=== PATIENT | female | born 1950 | race Caucasian/White ===

== ENCOUNTER 2016-11-07 18:36 | Observation (INO) | payer OTHER ==
[~2016-11-07] VITALS: Ht 165.1 cm; Wt 56.0 kg
[2016-11-07] MEDS ORDERED: IOHEXOL 350 MG/ML 10 ML VIAL (for RAD DIAG) IVCONTRAST ONE (18:37)
[2016-11-07 18:39] VITALS: BP 159/103; PULSE 147; RESP 18; TEMP 99.8; O2SAT 94
[2016-11-07 19:13] VITALS: BP 172/101; PULSE 134; O2SAT 95
[2016-11-07 19:14] VITALS: RESP 18; O2SAT 96
[2016-11-07] MEDS ORDERED: LORazepam 2 MG/ML VIAL IV PUSH ONE (19:30)
[2016-11-07] MEDS ORDERED: SODIUM CHLORID 0.9% 500 ML INJ 500 ML IV ONE (19:30)
[2016-11-07] MEDS ORDERED: LABETALOL HCL 100 MG/20 ML VIAL IV PUSH ONE (19:30)
[2016-11-07] MEDS ORDERED: ONDANSETRON HCL 4 MG/2 ML VIAL IV ONE (19:30)
--- NOTE | 2016-11-07 19:33 | PD ---
HPI Chief Complaint: GI Complaint Time Seen by Provider: 19:07 Travel History International Travel<30 days: No Contact w/Intl Traveler<30days: No Traveled to known affect area: No History of Present Illness HPI The patient is a 66 year old female who presents to the [facility] emergency department with a history of generalized weakness that she reports began a month ago. She reports that a week ago she began to have right upper quadrant abdominal pain and abdominal distention. She reports that she intermittently has nausea and vomiting, last episode of vomiting was a few days ago. She denies having any diarrhea. She reports that she last checked her blood sugar 2 days ago and it was 126. She reports that she has diabetes mellitus that is diet and exercise controlled. She cannot recall the name of her primary care physician. She was last seen by primary care physician a year ago. She reports that she has a history of tachycardia and was placed on atenolol, however she ran out of this medication week ago. The patient reports that she was drinking a half a gallon of vodka per week, however a month ago she discontinued this. She reports that she was shaky over the last 2 days, therefore she did drink 1 shot of vodka yesterday. The patient reports that she has been sleeping up to 20 hours per day. She reports that because of that she is smoking less cigarettes. She reports that she is down to smoking one half pack of cigarettes per day. She reports that she has a chronic smoker's cough that has not been any worse or more productive. Otherwise on review of systems she denies any recent fevers, neck pain, chest pain, shortness of breath , urinary symptoms, or neurologic symptoms. [facility] Past Medical History Narrative Medical The patient's past medical history is significant for alcohol abuse, tobacco abuse, history of tachycardia, history of diet and exercise controlled diabetes mellitus. Cancer: Yes (breast) Diabetes: Yes Patient Takes Glucophage: No Immunizations Current: No Past Surgical History Narrative Surgical The patient's past surgical history is significant for , history of left breast cancer status post left mastectomy with reconstruction, status post chemotherapy without radiation therapy. The patient reports having breast cancer 40 years of age. Other Surgery: Yes (L side mastectomy, , ) Social History Alcohol Use: Yes (recently reportedly quit drinking alcohol heavily a month ago ) Tobacco Use: Yes (one half pack per day) Substance Use: No Allergies-Medications (Allergen,Severity, Reaction): Coded Allergies: No Known Allergies (Unverified , 11/07/16) Narrative Medication The patient is supposed to be on atenolol, however she ran out of the medication a week ago. Review of Systems Except as stated in HPI: all other systems reviewed are Neg General / Constitutional: No: Fever Eyes: No: Visual changes HENT: No: Headaches Cardiovascular: No: Chest Pain or Discomfort, Dyspnea on exertion Respiratory: Positive: Cough (chronic smoker's cough), No: Shortness of Breath Gastrointestinal: Positive: Nausea, Vomiting, Abdominal Pain, Loss of Appetite , No: Diarrhea, Indigestion Genitourinary: No: Dysuria Musculoskeletal: No: Pain Skin: No Rash Neurologic: Positive: Weakness (generalized weakness and fatigue), No: Focal Abnormalities, Change in Mentation, Slurred Speech, Sensory Disturbance Psychiatric: No: Depression Endocrine: No: Polydipsia Hematologic/Lymphatic: No: Easy Bruising Physical Exam Narrative General: The patient is a well-developed well-nourished female in no acute distress. The patient's initial blood pressure is 170/110. Head and Neck exam: Head is normocephalic atraumatic. Eyes: EOMI, pupils are equal round and reactive to light. Nose: Midline septum with pink mucous membranes Mouth: Dentition unremarkable. Moist mucus membranes. Posterior oropharynx is not erythematous. No tonsillar hypertrophy. Uvula midline. Airway patent. Neck: No palpable lymphadenopathy. No nuchal rigidity. No thyromegaly. Cardiovascular: Sinus tachycardia in the 130s without murmurs, gallops, or rubs. No pulse deficit to the extremities and simultaneous auscultation and palpation of her radial artery. Lungs: The patient has decreased breath sounds in the right lower lung base, otherwise no wheezes, rhonchi, or crackles. No accessory muscle use. No paroxysmal abdominal breathing. No tripoding. Abdomen: Soft, with abdominal distention and a positive fluid wave. No significant tenderness on palpation except in the location of the right upper quadrant of the abdomen on deep palpation. No guarding, rebound, or rigidity. Normal bowel sounds are audible. No tenderness on palpation of McBurney's point. Negative Bal sign. Extremities: No clubbing, cyanosis, or edema. 2+ pulses in all 4 extremities. No calf tenderness on palpation. Back: No spinous process tenderness to palpation. No costovertebral angle tenderness to palpation. Neurologic Exam: Grossly nonfocal. No asterixis. The patient has slight tremulousness noted. Skin Exam: No rash noted. Intact skin that is warm and dry. Data Data Last Documented VS Vital Signs Date Time Temp Pulse Resp B/P (MAP) Pulse Ox O2 Delivery O2 Flow Rate FiO2 11/07/16 19:14 18 96 Room Air 11/07/16 19:13 134 11/07/16 18:39 99.8 Orders Orders Electrocardiogram (11/07/16 19:09) Complete Blood Count With Diff (11/07/16 19:09) Comprehensive Metabolic Panel (11/07/16 19:09) Creatine Kinase (Cpk) (11/07/16 19:09) Ckmb (Isoenzyme) Profile (11/07/16 19:09) Troponin I (11/07/16 19:09) B-Type Natriuretic Peptide (11/07/16 19:09) Prothrombin Time / Inr (Pt) (11/07/16 19:09) Act Partial Throm Time (Ptt) (11/07/16 19:09) Lipase (11/07/16 19:09) Urinalysis - C+S If Indicated (11/07/16 19:09) Ammonia (11/07/16 19:09) Thyroid Stimulating Hormone (11/07/16 19:09) Chest, Single Ap (11/07/16 19:09) Iv Access Insert/Monitor (11/07/16 19:09) Ecg Monitoring (11/07/16 19:09) Oximetry (11/07/16 19:09) Drug Screen, Random Urine (11/07/16 19:09) Alcohol (Ethanol) (11/07/16 19:09) Salicylates (Aspirin) (11/07/16 19:09) Tylenol (Acetaminophen) (11/07/16 19:09) Ct Abd/Pel W Iv Contrast(Rout) (11/07/16 19:09) Ondansetron Inj (Zofran Inj) (11/07/16 19:30) Sodium Chlorid 0.9% 500 Ml Inj (Ns 500 M (11/07/16 19:30) Labetalol Inj (Trandate Inj) (11/07/16 19:30) Lorazepam Inj (Ativan Inj) (11/07/16 19:30) Iohexol 350 Inj (Omnipaque 350 Inj) (11/07/16 18:37) Admit Order (Ed Use Only) (11/07/16 21:56) Labs Laboratory Tests Test 11/07/16 19:15 11/07/16 19:30 White Blood Count 5.4 TH/MM3 Red Blood Count 3.96 MIL/MM3 Hemoglobin 13.3 GM/DL Hematocrit 40.7 % Mean Corpuscular Volume 102.8 FL Mean Corpuscular Hemoglobin 33.7 PG Mean Corpuscular Hemoglobin Concent 32.8 % Red Cell Distribution Width 13.7 % Platelet Count 144 TH/MM3 Mean Platelet Volume 9.2 FL Neutrophils (%) (Auto) 69.4 % Lymphocytes (%) (Auto) 21.2 % Monocytes (%) (Auto) 8.1 % Eosinophils (%) (Auto) 0.7 % Basophils (%) (Auto) 0.6 % Neutrophils # (Auto) 3.8 TH/MM3 Lymphocytes # (Auto) 1.1 TH/MM3 Monocytes # (Auto) 0.4 TH/MM3 Eosinophils # (Auto) 0.0 TH/MM3 Basophils # (Auto) 0.0 TH/MM3 CBC Comment DIFF FINAL Differential Comment Prothrombin Time 13.0 SEC Prothromb Time International Ratio 1.2 RATIO Activated Partial Thromboplast Time 26.8 SEC Blood Urea Nitrogen 9 MG/DL Creatinine 0.67 MG/DL Random Glucose 149 MG/DL Total Protein 7.5 GM/DL Albumin 2.7 GM/DL Calcium Level 8.5 MG/DL Alkaline Phosphatase 84 U/L Aspartate Amino Transf (AST/SGOT) 77 U/L Alanine Aminotransferase (ALT/SGPT) 36 U/L Total Bilirubin 1.5 MG/DL Sodium Level 138 MEQ/L Potassium Level 3.7 MEQ/L Chloride Level 107 MEQ/L Carbon Dioxide Level 22.8 MEQ/L Anion Gap 8 MEQ/L Estimat Glomerular Filtration Rate 88 ML/MIN Total Creatine Kinase 51 U/L Troponin I LESS THAN 0.02 NG/ML B-Type Natriuretic Peptide 30 PG/ML Lipase 107 U/L Thyroid Stimulating Hormone 3rd Gen 1.870 uIU/ML Acetaminophen Level LESS THAN 2.0 MCG/ML Ethyl Alcohol Level 4 MG/DL Ammonia 47 MCMOL/L Salicylates Level LESS THAN 1.7 MG/DL MDM Medical Decision Making Medical Screen Exam Complete: Yes Emergency Medical Condition: Yes Medical Record Reviewed: Yes Differential Diagnosis Ascites, versus bowel obstruction, versus liver failure, versus hepatic encephalopathy, versus alcohol withdrawal syndrome Narrative Course During the course of the patients emergency department visit, the patients history, examination, and differential diagnosis were reviewed with the patient. The patient had IV access obtained and blood work sent for analysis. The patient was placed on a cardiac catheterization technician with oximetry and blood pressure monitoring. An ECG was done on arrival. The patient's ECG reveals a sinus tachycardia rate of 132, no acute ST segment elevation or depression, QRS duration is 74 ms, QTC 374 ms. The patient was initially provided normal saline a 500 mL bolus, Zofran 4 mg IV , labetalol 10 mg IV related to her tachycardia, hypertension, medication noncompliance with beta amei regimen. The patient was given Ativan 0.5 mg IV due to my concern that there is a suspected component of alcohol withdrawal syndrome. The patients laboratory studies were reviewed and remarkable for white count of 5.4, hemoglobin 13.3, platelets 144 with 8.1 monocytes, PT 13, INR 1.2, PTT 26.8. CMP is remarkable for glucose of 149, AST 77, total bilirubin 1.5, CPK is 51, ammonia level is 47, troponin I is less than 0.02, BNP 30, albumin 2.7, lipase 107, TSH 1.87, salicylate less than 1.7, acetaminophen less than 2, alcohol level is 4 Radiology studies were reviewed and remarkable for a chest x-ray that shows no acute cardiopulmonary disease. CT scan of the abdomen and pelvis shows suspected changes of cirrhosis of the liver. There is a moderate amount of ascites and varices present. Mild hiatal hernia. There are varices seen within the hiatal hernia. Absence of the right kidney. The left kidney appears unremarkable. The patients results were discussed with the patient, including the plan of care. I explained that further testing and/ or monitoring is indicated based on the patients history, examination, and/ or laboratory findings. Therefore, I recommended admission for additional evaluation. The patient expressed understanding and was agreeable with this plan. The patient was admitted to the hospital in guarded condition and sent to a bed under the care of the [facility]ist service. Physician Communication Physician Communication The patient's case was discussed with Dr. Blanc who did agree to admit the patient for further evaluation and treatment at this time. Diagnosis Primary Impression: Abdominal pain Qualified Codes: R10.11 - Right upper quadrant pain Additional Impressions: Generalized weakness Vomiting Qualified Codes: R11.2 - Nausea with vomiting, unspecified Admitting Information Admitting Physician Requests: it Fatou Starkey MD Nov 07, 2016 19:33
[2016-11-07 19:38] LABS: AUTOMATED NEUTROPHIL # 3.8 TH/MM3 (1.8-7.7); BASOPHIL % 0.6 % (0.0-2.0); EOSINOPHIL % 0.7 % (0.0-4.0); HEMATOCRIT 40.7 % (35.0-46.0); HEMO FLAGS DIFF FINAL; LYMPH % 21.2 % (9.0-44.0); LYMPHOCYTE # 1.1 TH/MM3 (1.0-4.8); MEAN CELL VOLUME 102.8 FL (80.0-100.0); MEAN CORPUSCULAR HEMOGLOBIN 33.7 PG (27.0-34.0); MEAN CORPUSCULAR HGB CONC 32.8 % (32.0-36.0); MONO % 8.1 % (0.0-8.0); NEUT % 69.4 % (16.0-70.0); PLATELET COUNT 144 TH/MM3 (150-450); RED BLOOD COUNT 3.96 MIL/MM3 (4.00-5.30); RED CELL DISTRIBUTION WIDTH 13.7 % (11.6-17.2); WHITE BLOOD COUNT 5.4 TH/MM3 (4.0-11.0)
[2016-11-07 19:52] LABS: APTT (PATIENT) 26.8 SEC (24.3-30.1); INTERNATIONAL NORMALIZED RATIO 1.2 RATIO
[2016-11-07 20:11] LABS: ANION GAP 8 MEQ/L (5-15)
[2016-11-07 20:22] LABS: ACETAMINOPHEN LESS THAN 2.0 MCG/ML (10.0-30.0); ALCOHOL 4 MG/DL (0-5); ALKALINE PHOSPHATASE 84 U/L (45-117); ALT (GPT) 36 U/L (10-53); AST (GOT) 77 U/L (15-37); BICARBONATE 22.8 MEQ/L (21.0-32.0); BLOOD UREA NITROGEN 9 MG/DL (7-18); CHLORIDE 107 MEQ/L (98-107); CREATINE KINASE 51 U/L (26-192); GLOMERULAR FILTRATION RATE 88 ML/MIN (>89); POTASSIUM 3.7 MEQ/L (3.5-5.1); SODIUM (NA) 138 MEQ/L (136-145); TOTAL BILIRUBIN ADULT 1.5 MG/DL (0.2-1.0)
[2016-11-07 20:30] VITALS: BP 164/89; PULSE 113; RESP 16; O2SAT 97
--- NOTE | 2016-11-07 20:52 | RADRPT ---
EXAM DATE/TIME: 11/07/2016 19:25 [facility] COMPARISON: No previous studies available for comparison. INDICATIONS : Palpitations MEDICAL HISTORY : Diabetes mellitus type II. SURGICAL HISTORY : Mastectomy, left. ENCOUNTER: Initial ACUITY: 1 month PAIN SCORE: 0/10 LOCATION: chest FINDINGS: A single view of the chest demonstrates the lungs to be symmetrically aerated without evidence of mas s, infiltrate or effusion. The cardiomediastinal contours are unremarkable. Osseous structures are intact. There is a peripherally calcified left breast implant. CONCLUSION: No acute disease. Santiago Mcleod MD on November 07, 2016 at 20:50 Board Certified Radiologist. This report was verified electronically.
[2016-11-07] MEDS ORDERED: SODIUM CHLORIDE 0.9% FLUSH 10 ML FLUSH IV FLUSH PRN (22:15)
[2016-11-07] MEDS ORDERED: NALOXONE HCL 0.4 MG/ML AMP IV PRN (22:15)
[2016-11-07] MEDS ORDERED: LACTULOSE SYRUP 20 GM/30 ML CUP PO ONE (22:15)
[2016-11-07] MEDS ORDERED: SODIUM CHLOR 0.9% 1000 ML INJ 1,000 ML IV ONE (22:15)
--- NOTE | 2016-11-07 22:56 | RADRPT ---
EXAM DATE/TIME: 11/07/2016 21:11 [facility] COMPARISON: No previous studies available for comparison. INDICATIONS : Abdominal pain with distention and general weakness. IV CONTRAST: 92 cc Omnipaque 350 (iohexol) IV ORAL CONTRAST: No oral contrast ingested. RADIATION DOSE: 4.90 CTDIvol (mGy) MEDICAL HISTORY : Diabetes mellitus type 2. Breast cancer. SURGICAL HISTORY : section. Mastectomy, left. ENCOUNTER: Initial ACUITY: 3 days PAIN SCALE: 7/10 LOCATION: Bilateral abdomen TECHNIQUE: Volumetric scanning of the abdomen and pelvis was performed. Using automated exposure control and adjustment of the mA and/or kV according to patient size, radiation dose was kept as low as reasonably achievable to obtain optimal diagnostic quality images. DICOM format image data is av ailable electronically for review and comparison. FINDINGS: The liver demonstrates abnormal morphology with hypertrophy of the caudate lobe. The l iver demonstrates diffuse decreased attenuation. Focal hepatic lesions are not seen. There is questi onable nodularity to the liver surface. The gallbladder is not distended. The spleen, adrenal glands and left kidney appear normal. The right kidney is not present. There is generalized atrophy of the pancreas. There is a moderate amount of ascites seen throughout the perit rosado cavity. There is recanalized periumbilical vein. The patient has a mild hiatal hernia. There do appear to be small varices seen around the hiatal hernia. Other than the mild hiatal hernia the bowel appears unremarkable. The pelvic structures appear grossly intact. There are scattered athero sclerotic calcifications seen throughout the arterial system. No aneurysm is seen. The lung bases a re grossly clear. The patient has a peripherally calcified left breast implant. CONCLUSION: 1. Suspected changes of cirrhosis in the liver. There is a moderate amount of ascites and varices pr esent. 2. Mild hiatal hernia. There are varices seen around the hiatal hernia. 3. Absence of the right kidney. The left kidney appears unremarkable. Santiago Mcleod MD on November 07, 2016 at 22:46 Board Certified Radiologist. This report was verified electronically.
[2016-11-07 23:00] VITALS: BP 158/99; PULSE 101; RESP 16; O2SAT 96
[2016-11-07 23:30] LABS: BACTERIA, URINE RARE /hpf; BLOOD, URINE NEG (NEG); COMMENT (UR) CULT NOT INDICATED; CULTURE IF INDICATED CULT NOT INDICATED; GLUCOSE,URINE NEG (NEG); KETONE, URINE TRACE mg/dL (NEG); MUCUS URINE FEW /lpf (OCC); NITRITE,URINE NEG (NEG); SQUAMOUS EPITHELIAL CELL URINE 10 /hpf (0-5); URINE COLOR YELLOW (YELLW/STRAW)
[2016-11-08] VITALS (10 sets, daily range): BP systolic 116–137; BP diastolic 62–83; PULSE 70–87; RESP 14–18; TEMP 97–98; O2SAT 94–97
--- NOTE | 2016-11-08 03:52 | HHI.HP ---
HPI Service [facility] Primary Care Physician Unknown Admission Diagnosis Abdominal pain, Hepatic encephalopathy, dehydration Diagnoses: Chief Complaint: abdominal pain Travel History International Travel<30 Days: No Contact w/Intl Traveler <30 Da: No Traveled to Known Affected Are: No History of Present Illness Written by MARIA ELENA Mcguire acting as scribe for [Jayashree] on 11/08/16 at 03: 42. 66 y/o female with a history of DM (not on medication), and Tachycardia (ran out of meds one week ago) presented to the ED with complaints of abdominal pain and distention. She states that for the last few days she has been having increased RUQ pain, distention, concentrated urine and fatigue. She does complain of diarrhea, but she was just given lactulose. She denies any fever, chills, n/v, chest pain or sob. She states she has been off atenolol for the last week, but she is unsure why she is taking it. She denies any history of cirrhosis or Hep C. She states she quit drinking 1 month ago, but she did have a drink yesterday. She did not consider herself a heavy drinker prior. Review of Systems Except as stated in HPI: all other systems reviewed are Neg Past Family Social History Past Medical History DM Breast cancer mastectomy and chemo at age 40 Tachycardia not on any medication Past Surgical History Right mastectomy C Section Reported Medications Patient states she does not take any medications. Allergies: Coded Allergies: No Known Allergies (Unverified , 11/07/16) Active Ordered Medications Current Medications Medications (Trade) Dose Ordered Sig/Yoel Route Start Time Stop Time Status Last Admin (NS Flush) 2 ml UNSCH PRN IV FLUSH 11/07/16 22:15 (NS Flush) 2 ml BID IV FLUSH 11/08/16 09:00 (Narcan Inj) 0.4 mg UNSCH PRN IV 11/07/16 22:15 Family History Brother: Enlarged heart Social History Tobacco use: 1 PPD Alcohol use: quit 1 month ago, heavy drinker prior Illicit drug use: Denies Physical Exam Vital Signs Vital Signs Date Time Temp Pulse Resp B/P (MAP) Pulse Ox O2 Delivery O2 Flow Rate FiO2 11/08/16 00:24 86 11/08/16 00:04 97.9 87 18 130/70 (90) 96 11/07/16 23:00 101 16 158/99 (118) 96 Room Air 11/07/16 20:30 113 16 164/89 (114) 97 Room Air 11/07/16 19:14 18 96 Room Air 11/07/16 19:13 134 172/101 (124) 95 Room Air 11/07/16 18:39 99.8 147 18 159/103 (121) 94 Physical Exam GENERAL: This is a well-nourished, well-developed patient, in no apparent distress. SKIN: No rashes, ecchymoses or lesions. Cool and dry. HEAD: Atraumatic. Normocephalic. No temporal or scalp tenderness. EYES: Pupils equal round and reactive. ENT: Nose without bleeding, purulent drainage or septal hematoma. Airway patent. NECK: Trachea midline. No JVD or lymphadenopathy. CARDIOVASCULAR: Regular rate and rhythm without murmurs, gallops, or rubs. RESPIRATORY: Clear to auscultation. Breath sounds equal bilaterally. No wheezes , rales, or rhonchi. GASTROINTESTINAL: Abdomen soft, RUQ tenderness, distended. No hepato- splenomegaly, or palpable masses. No guarding. MUSCULOSKELETAL: Extremities without clubbing, cyanosis, or edema. No joint tenderness, effusion, or edema noted. No calf tenderness. NEUROLOGICAL: Awake and alert. Motor and sensory grossly within normal limits. Normal speech. Laboratory Laboratory Tests Test 11/07/16 19:15 11/07/16 19:30 11/07/16 23:10 White Blood Count 5.4 Red Blood Count 3.96 Hemoglobin 13.3 Hematocrit 40.7 Mean Corpuscular Volume 102.8 Mean Corpuscular Hemoglobin 33.7 Mean Corpuscular Hemoglobin Concent 32.8 Red Cell Distribution Width 13.7 Platelet Count 144 Mean Platelet Volume 9.2 Neutrophils (%) (Auto) 69.4 Lymphocytes (%) (Auto) 21.2 Monocytes (%) (Auto) 8.1 Eosinophils (%) (Auto) 0.7 Basophils (%) (Auto) 0.6 Neutrophils # (Auto) 3.8 Lymphocytes # (Auto) 1.1 Monocytes # (Auto) 0.4 Eosinophils # (Auto) 0.0 Basophils # (Auto) 0.0 CBC Comment DIFF FINAL Differential Comment Prothrombin Time 13.0 Prothromb Time International Ratio 1.2 Activated Partial Thromboplast Time 26.8 Blood Urea Nitrogen 9 Creatinine 0.67 Random Glucose 149 Total Protein 7.5 Albumin 2.7 Calcium Level 8.5 Alkaline Phosphatase 84 Aspartate Amino Transf (AST/SGOT) 77 Alanine Aminotransferase (ALT/SGPT) 36 Total Bilirubin 1.5 Sodium Level 138 Potassium Level 3.7 Chloride Level 107 Carbon Dioxide Level 22.8 Anion Gap 8 Estimat Glomerular Filtration Rate 88 Total Creatine Kinase 51 Troponin I LESS THAN 0.02 B-Type Natriuretic Peptide 30 Lipase 107 Thyroid Stimulating Hormone 3rd Gen 1.870 Acetaminophen Level LESS THAN 2.0 Ethyl Alcohol Level 4 Ammonia 47 Salicylates Level LESS THAN 1.7 Urine Color YELLOW Urine Turbidity CLEAR Urine pH 7.0 Urine Specific [place] GREATER THAN 1.050 Urine Protein 30 Urine Glucose (UA) NEG Urine Ketones TRACE Urine Occult Blood NEG Urine Nitrite NEG Urine Bilirubin NEG Urine Urobilinogen 2.0 Urine Leukocyte Esterase NEG Urine RBC 2 Urine WBC 3 Urine Squamous Epithelial Cells 10 Urine Bacteria RARE Urine Mucus FEW Microscopic Urinalysis Comment CULT NOT INDICATED Urine Opiates Screen NEG Urine Barbiturates Screen NEG Urine Amphetamines Screen NEG Urine Benzodiazepines Screen NEG Urine Cocaine Screen NEG Urine Cannabinoids Screen NEG Result Diagram: 11/07/16191411/07/161914 Imaging Last Impressions Chest X-Ray 11/07/161908 Signed Impressions: Service Date/Time: Monday, November 07, 2016 19:25 - CONCLUSION: No acute disease. Santiago Mcleod MD Abdomen/Pelvis CT 11/07/161908 Signed Impressions: Service Date/Time: Monday, November 07, 2016 21:11 - CONCLUSION: 1. Suspected changes of cirrhosis in the liver. There is a moderate amount of ascites and varices present. 2. Mild hiatal hernia. There are varices seen around the hiatal hernia. 3. Absence of the right kidney. The left kidney appears unremarkable. MD Miranda Moon VTE Risk Assessment Caprini VTE Risk Assessment: Mod/High Risk (score >= 2) VTE Pharm Contraindication: Coagulopathy,INR elevated Caprini Risk Assessment Model Point Value = 1 Point Value = 2 Point Value = 3 Point Value = 5 Age 41-60 Minor surgery BMI > 25 kg/m2 Swollen legs Varicose veins or History of unexplained or recurrent spontaneous Oral contraceptives or hormone replacement Sepsis (< 1 month) Serious lung disease, including pneumonia (< 1 month) Abnormal pulmonary function Acute myocardial infarction Congestive heart failure (< 1 month) History of inflammatory bowel disease Medical patient at bed rest Age 61-74 Arthroscopic surgery Major open surgery (> 45 min) Laparoscopic surgery (> 45 min) Malignancy Confined to bed (> 72 hours) Immobilizing plaster cast Central venous access Age >= 75 History of VTE Family history of VTE Factor V Leiden Prothrombin [id number] Lupus anticoagulant Anticardiolipin antibodies Elevated serum homocysteine Heparin-induced thrombocytopenia Other congenital or acquired thrombophilia Stroke (< 1 month) Elective arthroplasty Hip, pelvis, or leg fracture Acute spinal cord injury (< 1 month) Prophylaxis Regimen Total Risk Factor Score Risk Level Prophylaxis Regimen 0-1 Low Early ambulation 2 Moderate Order ONE of the following: *Sequential Compression Device (SCD) *Heparin 5000 units SQ BID 3-4 Higher Order ONE of the following medications: *Heparin 5000 units SQ TID *Enoxaparin/Lovenox 40 mg SQ daily (WT < 150 kg, CrCl > 30 mL/min) *Enoxaparin/Lovenox 30 mg SQ daily (WT < 150 kg, CrCl > 10-29 mL/min) *Enoxaparin/Lovenox 30 mg SQ BID (WT < 150 kg, CrCl > 30 mL/min) AND/OR *Sequential Compression Device (SCD) 5 or more Highest Order ONE of the following medications: *Heparin 5000 units SQ TID (Preferred with Epidurals) *Enoxaparin/Lovenox 40 mg SQ daily (WT < 150 kg, CrCl > 30 mL/min) *Enoxaparin/Lovenox 30 mg SQ daily (WT < 150 kg, CrCl > 10-29 mL/min) *Enoxaparin/Lovenox 30 mg SQ BID (WT < 150 kg, CrCl > 30 mL/min) AND *Sequential Compression Device (SCD) Assessment and Plan Problem List: (1) Cirrhosis ICD Code: K74.60 - Unspecified cirrhosis of liver Status: Acute (2) Abdominal pain ICD Code: R10.9 - Unspecified abdominal pain Status: Acute Assessment and Plan 66 y/o female with a history of DM (not on medication), and Tachycardia (ran out of meds one week ago) presented to the ED with complaints of abdominal pain and distention. Cirrhosis, patient with abdominal pain and distention, denies any history Abdomen CT reviewed and shows Suspected changes of cirrhosis in the liver. There is a moderate amount of ascites and varices present. Mild hiatal hernia. There are varices seen around the hiatal hernia. Absence of the right kidney. The left kidney appears unremarkable. -Consult GI -US guided paracentesis ordered Elevated ammonia, ammonia 47, patient is alert and oriented -Lactulose given in ED -Will schedule lactulose if mentation worsens DVT prophylaxis: SCDs This note was transcribed by scribe [Jackelyn Shoemaker]. I, Dr. Juan Blanc personally performed the history, physical exam, and medical decision making; and confirmed the accuracy of the information in the transcribed note. Authenticated by Dr. Juan Blanc on 11/08/16 at 03:42. Discussed Condition With Patient and ED physician Problem Qualifiers (1) Abdominal pain: Qualified Codes: R10.11 - Right upper quadrant pain Jackelyn Shoemaker Nov 08, 2016 03:52 Juan Blanc MD Nov 08, 2016 07:55
[2016-11-08] MEDS ORDERED: DEXTROSE 50% IN WATER 50 ML VIAL(D50) IV PRN (04:15)
[2016-11-08] MEDS ORDERED: PILL SPLITTER OTHER PRN (04:15)
[2016-11-08] MEDS ORDERED: GLUCAGON 1 MG/ML VIAL OTHER PRN (04:15)
[2016-11-08 07:14] LABS: AUTOMATED NEUTROPHIL # 2.2 TH/MM3 (1.8-7.7); BASOPHIL # 0.1 TH/MM3 (0-0.2); BASOPHIL % 1.7 % (0.0-2.0); EOSINOPHIL # 0.1 TH/MM3 (0-0.4); EOSINOPHIL % 2.6 % (0.0-4.0); HEMATOCRIT 33.6 % (35.0-46.0); HEMO FLAGS DIFF FINAL; LYMPH % 32.4 % (9.0-44.0); LYMPHOCYTE # 1.3 TH/MM3 (1.0-4.8); MEAN CORPUSCULAR HEMOGLOBIN 34.5 PG (27.0-34.0); MEAN CORPUSCULAR HGB CONC 33.2 % (32.0-36.0); MONO % 8.4 % (0.0-8.0); NEUT % 54.9 % (16.0-70.0); PLATELET COUNT 111 TH/MM3 (150-450); RED BLOOD COUNT 3.23 MIL/MM3 (4.00-5.30); RED CELL DISTRIBUTION WIDTH 13.7 % (11.6-17.2); WHITE BLOOD COUNT 4.1 TH/MM3 (4.0-11.0)
[2016-11-08 07:45] LABS: ANION GAP 9 MEQ/L (5-15); AST (GOT) 52 U/L (15-37); BICARBONATE 23.4 MEQ/L (21.0-32.0); BLOOD UREA NITROGEN 6 MG/DL (7-18); CHLORIDE 111 MEQ/L (98-107); GLOMERULAR FILTRATION RATE 136 ML/MIN (>89); POTASSIUM 3.4 MEQ/L (3.5-5.1); SODIUM (NA) 143 MEQ/L (136-145)
[2016-11-08 08:02] LABS: ALKALINE PHOSPHATASE 59 U/L (45-117); ALT (GPT) 28 U/L (10-53); TOTAL BILIRUBIN ADULT 1.3 MG/DL (0.2-1.0)
[2016-11-08] MEDS ORDERED: SODIUM CHLORIDE 0.9% FLUSH 10 ML FLUSH IV FLUSH SCH (09:00)
[2016-11-08] MEDS ORDERED: METOPROLOL TARTRATE 25 MG TAB PO SCH (09:00)
--- NOTE | 2016-11-08 09:10 | EKG ---
Date Performed: 11/07/2016 Time Performed: 19:22:08 PTAGE: 66 years EKG: SINUS TACHYCARDIA LOW QRS VOLTAGE IN PRECORDIAL LEADS ABNORMAL RHYTHM ECG NO PREVIOUS TRACING DOCTOR: Dwayne Starkey Interpretating Date/Time 11/08/2016 09:08:22
[2016-11-08 12:51] LABS: HEMOGLOBIN A1a 0.9 %; HEMOGLOBIN A1b 1.2 %; HEMOGLOBIN Ao 86.8 %; HEMOGLOBIN F 0.3 %; HEMOGLOBIN LA1C 1.9 %; HEMOGLOBIN P3 3.4 %
--- NOTE | 2016-11-08 13:02 | RADRPT ---
EXAM DATE/TIME: 11/08/2016 08:27 [place] COMPARISON: No previous studies available for comparison. INDICATIONS : Ascites. MEDICAL HISTORY : Carcinoma, breast. Diabetic. Cardiomegaly. SURGICAL HISTORY : section. Mastectomy, left. ENCOUNTER: Initial ACUITY: 1 day PAIN SCORE: 2/10 LOCATION: Right lower quadrant FLUID: Total volume of 2200 cc of clear, yellow fluid was removed. Fluid was sent to lab for ordered studies. Post procedure scanning reveals no hematoma or other complication. TECHNIQUE: 1. Ultrasound guidance for abdominal paracentesis. 2. Paracentesis. The risks, benefits, and alternatives to ultrasound guided paracentesis were explained to the patient in detail including the risk of bleeding and infection. Written and verbal informed consent was obt ained. With the patient on the ultrasound table, ultrasound imaging was used to select the most appropriate approach for paracentesis. Overlying skin was prepped and draped in the usual sterile fashion and wi th a local anesthetic, a dermatotomy was made with an 11 blade scalpel. A 6 Hungarian Skater catheter w as introduced into the peritoneal cavity under direct ultrasound guidance and fluid was collected. The patient tolerated the procedure well and left the ultrasound suite in stable condition. CONCLUSION: Uncomplicated ultrasound guided paracentesis. Farhan Clemons Jr., MD on November 08, 2016 at 12:57 Board Certified Radiologist. This report was verified electronically.
[2016-11-08 13:27] LABS: PERITONEAL HISTIOCYTES 39 %; PERITONEAL LYMPHS 21 %; PERITONEAL MESOTHELIAL 5 %; PERITONEAL MONOS 35 %; PERITONEAL POLYS(SEGS) 0 %
[2016-11-08 13:28] LABS: PERITONEAL WBC 170 /MM3 (0-10)
--- NOTE | 2016-11-08 15:54 | HHI.PR ---
Subjective Remarks Follow up for abdominal pain and distention. The patient is seen s/p paracentesis, 2200cc removed. She feels much better. She was able to eat lunch without difficulty. Denies any chest pain or shortness of breath. Denies fevers/ chills. She feels well and wants to go home. Objective Vitals Vital Signs Date Time Temp Pulse Resp B/P (MAP) Pulse Ox O2 Delivery O2 Flow Rate FiO2 11/08/16 12:36 70 11/08/16 12:16 97.3 74 16 116/77 (90) 94 11/08/16 12:06 97.0 72 14 137/77 (97) 97 11/08/16 11:30 97.8 77 16 129/83 (98) 94 11/08/16 08:17 76 11/08/16 07:19 97.8 81 18 116/62 (80) 94 11/08/16 04:24 98.0 87 18 118/65 (82) 97 11/08/16 03:56 87 11/08/16 00:24 86 11/08/16 00:04 97.9 87 18 130/70 (90) 96 11/07/16 23:00 101 16 158/99 (118) 96 Room Air 11/07/16 20:30 113 16 164/89 (114) 97 Room Air 11/07/16 19:14 18 96 Room Air 11/07/16 19:13 134 172/101 (124) 95 Room Air 11/07/16 18:39 99.8 147 18 159/103 (121) 94 I/O 11/07/16 11/07/16 11/07/16 11/08/16 11/08/16 11/08/16 07:00 15:00 23:00 07:00 15:00 23:00 Intake Total 1500 ml Balance 1500 ml Intake IV Total 1500 ml # Bowel Movements 2 Result Diagram: 11/08/16 0621 11/08/1621 Imaging Last Impressions Cyst Biopsy Asp-Paracentesis US 11/08/16 0000 Signed Impressions: Service Date/Time: Tuesday, November 08, 2016 08:27 - CONCLUSION: Uncomplicated ultrasound guided paracentesis. Farhan Clemons Jr., MD Chest X-Ray 11/07/16 5197 Signed Impressions: Service Date/Time: Monday, November 07, 2016 19:25 - CONCLUSION: No acute disease. Santiago Mcleod MD Abdomen/Pelvis CT 11/07/16 190 Signed Impressions: Service Date/Time: Monday, November 07, 2016 21:11 - CONCLUSION: 1. Suspected changes of cirrhosis in the liver. There is a moderate amount of ascites and varices present. 2. Mild hiatal hernia. There are varices seen around the hiatal hernia. 3. Absence of the right kidney. The left kidney appears unremarkable. Santiago Mcleod MD Objective Remarks GENERAL: Well-nourished, well-developed female patient in NAD. SKIN: Warm and dry. No rash. HEENT: Normocephalic. Atraumatic.Pupils equal and round. Mucous membranes pink and moist. CARDIOVASCULAR: Regular rate and rhythm. S1, S2 noted. No murmur appreciated. RESPIRATORY: No accessory muscle use. Clear to auscultation. Breath sounds equal bilaterally. GASTROINTESTINAL: Abdomen soft, non-tender, nondistended. Normoactive bowel sounds x4. MUSCULOSKELETAL: No obvious deformities. Extremities without clubbing, cyanosis , or edema. NEUROLOGICAL: Awake and alert. No obvious cranial nerve deficits. Motor grossly within normal limits. Normal speech. PSYCHIATRIC: Appropriate mood and affect; insight and judgment normal. Medications and IVs Current Medications Medications (Trade) Dose Ordered Sig/Yoel Route Start Time Stop Time Status Last Admin (NS Flush) 2 ml UNSCH PRN IV FLUSH 11/07/16 22:15 (NS Flush) 2 ml BID IV FLUSH 11/08/16 09:00 11/08/16 09:37 (Narcan Inj) 0.4 mg UNSCH PRN IV 11/07/16 22:15 (Lopressor) 12.5 mg Q12HR PO 11/08/16 09:00 11/08/16 09:37 (D50w (Vial) Inj) 50 ml UNSCH PRN IV 11/08/16 04:15 (Glucagon Inj) 1 mg UNSCH PRN OTHER 11/08/16 04:15 (Pill Splitter) 1 ea UNSCH PRN OTHER 11/08/16 04:15 A/P Problem List: (1) Cirrhosis ICD Code: K74.60 - Unspecified cirrhosis of liver Status: Acute (2) Abdominal pain ICD Code: R10.9 - Unspecified abdominal pain Status: Acute Assessment and Plan 66 y/o female with a history of DM (not on medication), and Tachycardia (ran out of meds one week ago) presented to the ED with complaints of abdominal pain and distention. Cirrhosis with Ascites: suspect alcoholic cirrhosis. Patient presented with abdominal pain and distention, denies any history of cirrhosis. Abdomen CT images reviewed, shows suspected changes of cirrhosis in the liver; moderate amount of ascites and varices present; Mild hiatal hernia; varices seen around the hiatal hernia; Absence of the right kidney; left kidney appears unremarkable. -S/p US guided paracentesis, removed 2200cc, fluid sent for studies -check hepatitis panel -antiemetics and pain control prn -Consult GI, appreciate recommendations -consider starting lasix/aldactone however caution with borderline hypotension and solitary kidney, GI will f/up in office and start meds if needed Hyperammonemia: ammonia 47, patient is AAOx4. Likely secondary to cirrhosis. -Lactulose given in ED -Patient continues to be AAOx4 Sinus Tachycardia: EKG reviewed, shows sinus tachycardia, HR 132. Suspect secondary to pain. Patient also recently ran out of her beta amie. -restart metoprolol 12.5mg po q12h -HR much improved, now well controlled in the 70s DVT prophylaxis: SCDs Discharge Planning Await further input from GI. 1700hrs: Patient seen by GI, discussed with Rosalba ARREDONDO. Ok to discharge the patient after labs are drawn. F/up as outpatient for EGD/colonoscopy. Patient is happy with this plan. Will discharge home. Discharge patient to home Condition on discharge: Improved Regular Diet as tolerated Ad Julia activity Rx written: metoprolol 12.5mg bid Follow-up with primary care physician and gastroenterology within 1-2 weeks Problem Qualifiers (1) Cirrhosis: Qualified Codes: K70.31 - Alcoholic cirrhosis of liver with ascites (2) Abdominal pain: Qualified Codes: R10.11 - Right upper quadrant pain Batsheva Dickson PA-C Nov 08, 2016 3:54 pm
[2016-11-08] MEDS ORDERED: METO25TA3 PO (15:55)
--- NOTE | 2016-11-08 15:56 | HHI.DCPOC ---
Discharge Care Plan Diagnosis: (1) Ascites (2) Cirrhosis (3) Abdominal pain Goals to Promote Your Health * To prevent worsening of your condition and complications * To maintain your health at the optimal level Directions to Meet Your Goals Take your medications as prescribed Follow your dietary instruction Follow activity as directed Keep your appointments as scheduled Take your immunizations and boosters as scheduled If your symptoms worsen call your PCP, if no PCP go to Urgent Care Center or Emergency Room Smoking is Dangerous to Your Health. Avoid second hand smoke Call the 24-hour hour crisis hotline for domestic abuse at Batsheva Dickson PA-C Nov 08, 2016 3:56 pm
--- NOTE | 2016-11-08 16:26 | PD.CONS ---
HPI History of Present Illness This is a 66 year old female who came to the ER for evaluation of abdominal swelling. She started having abdominal swelling about 4-5 days ago. As she had more distention, she began having a pressure like pain in her right upper quadrant. The pain was intermittent and seemed to be related to movement. It would completely resolve whenever she would lie down, but if she turned or sat up, she would have the pressure. She had mild nausea/vomiting initially, but has resolved. She reports a 5 lb weight loss over the past month. She has intermittent constipation/diarrhea- has both equally. This does not seem to be associated with any particular type of food. CT Scan abdomen and pelvis ()---> suspected changes of cirrhosis in the liver. there is a moderate amount of ascites and varices present. 2. Mild hiatal hernia. There are varices seen around the hiatal hernia. 3. Absence of the right kidney. The left kidney appears unremarkable. She has never been diagnosed with cirrhosis. She has a history of ETOH abuse, 1/2 gallon a week, but reports that she stopped one month ago. She is not aware of any hepatitis or other liver disease. She denies any family history of liver disease. (Rosalba Schmidt) PFSH Past Medical History DM Breast cancer, S/P mastectomy and chemotherapy at age 40 Hx ETOH abuse, quit 1 month Past Surgical History Right mastectomy C Section Jaw surgery (Rosalba Schmidt) Coded Allergies: No Known Allergies (Unverified , 11/07/16) Medications Allergies Coded Allergies Type Severity Reaction Last Updated Verified No Known Allergies 11/07/16 No Active Scripts Medications Dose Route/Sig Max Daily Dose Days Date Category Active Prescriptions or Reported Medications Unobtainable Rx Family History Brother has enlarged heart Social History Tobacco use: 1 PPD Alcohol use: quit 1 month ago, heavy drinker prior Illicit drug use: Denies (Rosalba Schmidt) Review of Systems Constitutional: COMPLAINS OF: Fatigue, Weight loss (5 bls), DENIES: Fever, Chills Respiratory: DENIES: Cough Cardiovascular: DENIES: Chest pain Gastrointestinal: COMPLAINS OF: Abdominal pain, Constipation, Diarrhea, Nausea , Vomiting, DENIES: Black stools, Bloody stools, Heartburn, Hematemesis Integumentary: DENIES: Abnormal pigmentation Hematologic/lymphatic: COMPLAINS OF: Bruising Neurologic: DENIES: Headache Psychiatric: DENIES: Confusion (Rosalba Schmidt MARIA ELENA) GI Exam Vitals I&O Vital Signs Date Time Temp Pulse Resp B/P (MAP) Pulse Ox O2 Delivery O2 Flow Rate FiO2 11/08/16 12:36 70 11/08/16 12:16 97.3 74 16 116/77 (90) 94 11/08/16 12:06 97.0 72 14 137/77 (97) 97 11/08/16 11:30 97.8 77 16 129/83 (98) 94 11/08/16 08:17 76 11/08/16 07:19 97.8 81 18 116/62 (80) 94 11/08/16 04:24 98.0 87 18 118/65 (82) 97 11/08/16 03:56 87 11/08/16 00:24 86 11/08/16 00:04 97.9 87 18 130/70 (90) 96 11/07/16 23:00 101 16 158/99 (118) 96 Room Air 11/07/16 20:30 113 16 164/89 (114) 97 Room Air 11/07/16 19:14 18 96 Room Air 11/07/16 19:13 134 172/101 (124) 95 Room Air 11/07/16 18:39 99.8 147 18 159/103 (121) 94 I/O 11/07/16 11/07/16 11/07/16 11/08/16 11/08/16 11/08/16 07:00 15:00 23:00 07:00 15:00 23:00 Intake Total 1500 ml Balance 1500 ml Intake IV Total 1500 ml # Bowel Movements 2 Imaging Last Impressions Cyst Biopsy Asp-Paracentesis US 11/08/16 0000 Signed Impressions: Service Date/Time: Tuesday, November 08, 2016 08:27 - CONCLUSION: Uncomplicated ultrasound guided paracentesis. Farhan Clemons Jr., MD Chest X-Ray 11/07/161908 Signed Impressions: Service Date/Time: Monday, November 07, 2016 19:25 - CONCLUSION: No acute disease. Santiago Mcleod MD Abdomen/Pelvis CT 11/07/161908 Signed Impressions: Service Date/Time: Monday, November 07, 2016 21:11 - CONCLUSION: 1. Suspected changes of cirrhosis in the liver. There is a moderate amount of ascites and varices present. 2. Mild hiatal hernia. There are varices seen around the hiatal hernia. 3. Absence of the right kidney. The left kidney appears unremarkable. Santiago Mcleod MD Laboratory Test 11/07/16 19:15 11/07/16 19:30 11/07/16 23:10 11/08/16 06:21 White Blood Count 5.4 TH/MM3 4.1 TH/MM3 Red Blood Count 3.96 MIL/MM3 3.23 MIL/MM3 Hemoglobin 13.3 GM/DL 11.2 GM/DL Hematocrit 40.7 % 33.6 % Mean Corpuscular Volume 102.8 FL 104.0 FL Mean Corpuscular Hemoglobin 33.7 PG 34.5 PG Mean Corpuscular Hemoglobin Concent 32.8 % 33.2 % Red Cell Distribution Width 13.7 % 13.7 % Platelet Count 144 TH/MM3 111 TH/MM3 Mean Platelet Volume 9.2 FL 9.6 FL Neutrophils (%) (Auto) 69.4 % 54.9 % Lymphocytes (%) (Auto) 21.2 % 32.4 % Monocytes (%) (Auto) 8.1 % 8.4 % Eosinophils (%) (Auto) 0.7 % 2.6 % Basophils (%) (Auto) 0.6 % 1.7 % Neutrophils # (Auto) 3.8 TH/MM3 2.2 TH/MM3 Lymphocytes # (Auto) 1.1 TH/MM3 1.3 TH/MM3 Monocytes # (Auto) 0.4 TH/MM3 0.3 TH/MM3 Eosinophils # (Auto) 0.0 TH/MM3 0.1 TH/MM3 Basophils # (Auto) 0.0 TH/MM3 0.1 TH/MM3 CBC Comment DIFF FINAL DIFF FINAL Differential Comment Prothrombin Time 13.0 SEC Prothromb Time International Ratio 1.2 RATIO Activated Partial Thromboplast Time 26.8 SEC Blood Urea Nitrogen 9 MG/DL 6 MG/DL Creatinine 0.67 MG/DL 0.46 MG/DL Random Glucose 149 MG/DL 105 MG/DL Total Protein 7.5 GM/DL 6.0 GM/DL Albumin 2.7 GM/DL 2.1 GM/DL Calcium Level 8.5 MG/DL 7.7 MG/DL Alkaline Phosphatase 84 U/L 59 U/L Aspartate Amino Transf (AST/SGOT) 77 U/L 52 U/L Alanine Aminotransferase (ALT/SGPT) 36 U/L 28 U/L Total Bilirubin 1.5 MG/DL 1.3 MG/DL Sodium Level 138 MEQ/L 143 MEQ/L Potassium Level 3.7 MEQ/L 3.4 MEQ/L Chloride Level 107 MEQ/L 111 MEQ/L Carbon Dioxide Level 22.8 MEQ/L 23.4 MEQ/L Anion Gap 8 MEQ/L 9 MEQ/L Estimat Glomerular Filtration Rate 88 ML/MIN 136 ML/MIN Total Creatine Kinase 51 U/L Troponin I LESS THAN 0.02 NG/ML B-Type Natriuretic Peptide 30 PG/ML Lipase 107 U/L Thyroid Stimulating Hormone 3rd Gen 1.870 uIU/ML Acetaminophen Level LESS THAN 2.0 MCG/ML Ethyl Alcohol Level 4 MG/DL Ammonia 47 MCMOL/L Salicylates Level LESS THAN 1.7 MG/DL Urine Color YELLOW Urine Turbidity CLEAR Urine pH 7.0 Urine Specific [place] GREATER THAN 1.050 Urine Protein 30 mg/dL Urine Glucose (UA) NEG mg/dL Urine Ketones TRACE mg/dL Urine Occult Blood NEG Urine Nitrite NEG Urine Bilirubin NEG Urine Urobilinogen 2.0 MG/DL Urine Leukocyte Esterase NEG Urine RBC 2 /hpf Urine WBC 3 /hpf Urine Squamous Epithelial Cells 10 /hpf Urine Bacteria RARE /hpf Urine Mucus FEW /lpf Microscopic Urinalysis Comment CULT NOT INDICATED Urine Opiates Screen NEG Urine Barbiturates Screen NEG Urine Amphetamines Screen NEG Urine Benzodiazepines Screen NEG Urine Cocaine Screen NEG Urine Cannabinoids Screen NEG Hemoglobin A1c 5.4 % Test 11/08/16 11:45 Peritoneal Fluid WBC 170 /MM3 Peritoneal Fluid RBC 140 /MM3 Peritoneal Fluid Neutrophils 0 % Peritoneal Fluid Lymphocytes 21 % Peritoneal Fluid Monocytes 35 % Peritoneal Fluid Histiocytes 39 % Peritoneal Fluid Mesothelial Cells 5 % Peritoneal Fluid Total Protein 1.8 GM/DL Peritoneal Fluid Albumin 0.8 G/DL Peritoneal Fluid LDH 59 U/L Peritoneal Fluid Glucose 117 MG/DL Date/Time Source Procedure Growth Status 11/08/16 11:45 Fluid Peritoneal Fluid Gram Stain - Final Resulted 11/08/16 11:45 Fluid Peritoneal Fluid Body Fluid Culture Pending Resulted Physical Examination HEENT: Normocephalic; atraumatic; no jaundice. CHEST: CTA CARDIAC: RRR ABDOMEN: Soft, nondistended, nontender; bowel sounds are present in all four quadrants. EXTREMITIES: No clubbing, cyanosis, or edema. SKIN: Normal; no rash; no jaundice. DAY CARE HOME PROVIDER: No focal deficits; alert and oriented times three. (Rosalba Schmidt) Assessment and Plan Plan ASSESSMENT: - New onset ascites. S/P US guided paracentesis (11/08/16)----> s/p removal of 2200cc of clear yellow fluid. Feeling much better. - Liver cirrhosis, new diagnosis. CT Scan abdomen and pelvis (11/07/16)---> suspected changes of cirrhosis in the liver. there is a moderate amount of ascites and varices present. 2. Mild hiatal hernia. There are varices seen around the hiatal hernia. 3. Absence of the right kidney. The left kidney appears unremarkable. Long hx of ETOH abuse, quit one month ago. Denies any prior hx of liver cirrhosis or liver disease. T. Bili 1.3, AST 52, ALT 28, ALk Phosph 59. - Anemia. 11.2/33.6. - Hx ETOH abuse, was drinking 1/2 bottle of Vodka every week, but quit 1 month ago. PLAN: - Low sodium diet - AFP level - Hepatitis profile - YADIEL, ASMA, AMA - Ceruloplasmin, Alpha 1 Antitrypsin - Ferritin, Iron saturation - Pt is feeling back to herself and requesting to be discharged. Would like to have liver workup as outpatient - Okay to d/c home from GI standpoint after labs drawn - No ETOH- d/w patient - Will need EGD with possible band ligation and colonoscopy as outpatient - Will consider diuretics at outpatient visit (mild ascites, no le edema. borderline low b/p, just restarted bb) - Pt seen and examined by Dr. 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 (Barry Frost MD) Rosalba Schmidt Nov 08, 2016 16:26 Barry Frost MD Nov 08, 2016 20:35
[2016-11-08 18:19] LABS: TRANSFERRIN IRON PROFILE 142 MG/DL (200-360)
[2016-11-08 18:22] LABS: FERRITIN 256 NG/ML (8-252)
[2016-11-12 17:50] LABS: MITOCHONDRIAL ABS LESS THAN 20.0 U (<=20.0)
== END 2016-11-08 18:27 | disposition home or self-care (01) ==
LOC: NEPC 18:36 → NEDA 21:57 → INTOOBSV 21:57 → NEPHCDU 23:45
PROVIDERS: ADMIT Family Medicine; ATTEND Family Medicine
DX: R18.8 Other ascites (principal); K74.60 Unspecified cirrhosis of liver; E11.9 Type 2 diabetes mellitus without complications; E86.0 Dehydration; R00.0 Tachycardia, unspecified; I10 Essential (primary) hypertension; R00.2 Palpitations; R94.31 Abnormal electrocardiogram [ECG] [EKG]; F17.210 Nicotine dependence, cigarettes, uncomplicated; Z79.84 Long term (current) use of oral hypoglycemic drugs; Z91.14 Patient's other noncompliance with medication regimen
CPT/HCPCS: 49083; 71010; 74177; 80053; 80074; 80307; 81001; 82042; 82103; 82105; 82140; 82378; 82390; 82550; 82728; 82945; 82948; 83036; 83520; 83540; 83550; 83615; 83690; 83880; 84157; 84443; 84484; 85025; 85610; 85730; 86038; 86255; 86301; 87070; 87205; 88112; 88305; 89051; 93005; 96361; 96374; 96375; 99285; C1729; G0378; J2060; J2405; J7030; J7040; Q9967